=== PATIENT | male | born 1940 | race Two or more races ===

== ENCOUNTER 2020-07-26 09:28 | Outpatient (CLI) | payer OTHER | END 2020-07-26 11:00 | disposition home or self-care (01) | LOC: OFIC 805 09:28 | PROVIDERS: ATTEND Otolaryngology | DX: J30.89 Other allergic rhinitis (principal); J32.8 Other chronic sinusitis; H73.892 Other specified disorders of tympanic membrane, left ear; H61.22 Impacted cerumen, left ear ==

== ENCOUNTER 2020-09-10 08:08 | Outpatient (CLI) | payer OTHER | END 2020-09-10 16:23 | disposition home or self-care (01) | LOC: OFIC 805 08:08 | PROVIDERS: ATTEND Otolaryngology | DX: H90.12 Conductive hearing loss, unilateral, left ear, with unrestricted hearing on the contralateral side (principal); J30.89 Other allergic rhinitis; H73.892 Other specified disorders of tympanic membrane, left ear ==

== ENCOUNTER 2020-09-18 09:30 | Outpatient (CLI) | payer OTHER | END 2020-09-18 10:20 | disposition home or self-care (01) | LOC: OFIC 805 09:30 | PROVIDERS: ATTEND Otolaryngology | DX: H90.12 Conductive hearing loss, unilateral, left ear, with unrestricted hearing on the contralateral side (principal); H73.892 Other specified disorders of tympanic membrane, left ear ==